=== PATIENT | male | born 1965 | race Caucasian/White ===

== ENCOUNTER → 2020-04-21 | Outpatient (CLI) | payer BC | END | disposition home or self-care (01) | LOC: CVU 06:26 | PROVIDERS: ATTEND Internal Medicine Cardiovascular Disease | DX: I65.23 Occlusion and stenosis of bilateral carotid arteries (principal); I10 Essential (primary) hypertension; E78.00 Pure hypercholesterolemia, unspecified; I25.10 Atherosclerotic heart disease of native coronary artery without angina pectoris; R07.9 Chest pain, unspecified | CPT/HCPCS: 78452; 93017; 93880; A9502 ==

== ENCOUNTER → 2020-09-25 | Outpatient (CLI) | payer BC | END | disposition home or self-care (01) | LOC: CFH 09:58 | PROVIDERS: ATTEND Internal Medicine Cardiovascular Disease | DX: I35.8 Other nonrheumatic aortic valve disorders (principal); R07.9 Chest pain, unspecified | CPT/HCPCS: 93306 ==